=== PATIENT | male | born 1990 | race Caucasian/White ===

== ENCOUNTER 2023-09-02 10:53 | Emergency (ER) | payer BC ==
[~2023-09-02] VITALS: Ht 170.2 cm; Wt 70.1 kg
[2023-09-02 11:09] VITALS: BP 120/102; PULSE 49; RESP 16; TEMP 98.4; O2SAT 100
[2023-09-02 12:40] LABS: BASOPHILS % (AUTO) 0.1 % (0-1); EOSINOPHILS % (AUTO) 0.2 % (0-6); HEMATOCRIT 50.9 % (42.0-52.0); HEMOGLOBIN 16.7 g/dl (14.0-17.9); LYMPHOCYTES # (AUTO) 0.8 X10'3 (1.1-4.8); LYMPHOCYTES % (AUTO) 4.5 % (21-51); MEAN CORPUSCULAR HEMOGLOBIN 28.8 PG (27.0-31.0); MEAN CORPUSCULAR HGB CONC 32.8 g/dL (33.0-36.5); MEAN CORPUSCULAR VOLUME 87.9 FL (78-98); MEAN PLATELET VOLUME 9.5 FL (7.4-10.4); MONOCYTES # (AUTO) 0.8 X10'3 (0-0.9); MONOCYTES % (AUTO) 4.1 % (2-12); NEUTROPHILS % (AUTO) 91.1 % (42-75); PLATELET COUNT 223 X10'3 (140-440); RED BLOOD COUNT 5.79 X10'6 (4.70-6.10); RED CELL DISTRIBUTION WIDTH 14.5 % (11.5-14.5); WHITE BLOOD COUNT 18.7 X10'3 (4.5-11.0)
[2023-09-02 12:57] LABS: ALANINE AMINOTRANSFERASE 23 U/L (12-78); ALBUMIN 4.6 G/DL (3.4-5.0); ALBUMIN/GLOBULIN RATIO 1.3 (1.1-1.5); ALKALINE PHOSPHATASE 80 IU/L (46-116); ANION GAP 8 (8-16); ASPARTATE AMINO TRANSFERASE 14 U/L (10-37); BILIRUBIN,TOTAL 0.9 MG/DL (0.1-1.0); BLOOD UREA NITROGEN 9 MG/DL (7-18); BUN/CREATININE RATIO 8.1 (10.0-20.0); CALCIUM 9.8 MG/DL (8.5-10.1); CHLORIDE 102 MMOL/L (99-107); CREATININE 1.11 MG/DL (0.60-1.10); GLUCOSE 142 MG/DL (70-104); LIPASE 18 U/L (16-77); SODIUM 138 MMOL/L (135-145); TOTAL CARBON DIOXIDE 28.5 MMOL/L (24-32); TOTAL PROTEIN 8.1 G/DL (6.4-8.2); eCRCL 88 ML/MIN; eGFR 76 ML/MIN
[2023-09-02] MEDS: metoclopramide 5 mg/ml inj IV ONE (15:03)
[2023-09-02] MEDS: glycopyrrolate 0.2mg/ml inj IV ONE (15:03)
[2023-09-02] MEDS: diphenhydrAMINE 50 mg/ml inj IV ONE (15:04)
[2023-09-02] MEDS ORDERED: ONDA4TAB12 PO (15:38)
== END 2023-09-02 15:55 | disposition home or self-care (01) ==
LOC: ER 10:53
DX: R11.2 Nausea with vomiting, unspecified (principal); R19.7 Diarrhea, unspecified; Z79.899 Other long term (current) drug therapy
CPT/HCPCS: 36415; 80053; 83690; 84145; 85025; 96374; 96375; 99284; J1200; J2765; J3490